=== PATIENT | male | born 1985 | race Caucasian/White ===

== ENCOUNTER 2016-12-14 21:47 | Emergency (ER) | payer OTHER ==
[~2016-12-14] VITALS: Ht 172.7 cm; Wt 103.9 kg
[2016-12-14 21:47] VITALS: Ht 172.7 cm; Wt 103.9 kg
[~2016-12-14 21:47] MED LIST: CARV12.52 PO; FURO-153 PO; LAMO150T42 PO; LISI10TA7 PO; MIRT30TA6 PO; ORPH100T2 PO; PRAV40TA3 PO; PROP10TA10 PO; SERT-88 PO; TRAM50TA53 PO; TRAZ-170 PO
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
--- NOTE | 2016-12-14 21:57 | NUR ---
REPORT RECEIVED AND CARE ASSUMED AT THIS TIME.
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
--- NOTE | 2016-12-14 22:02 | NUR ---
RUPESH PLATT INTO SEE PT AT THIS TIME.
--- NOTE | 2016-12-14 22:25 | NUR ---
XRY AT BEDSIDE.
--- NOTE | 2016-12-14 23:20 | NUR ---
RUPESH PLATT INTO TALK WITH PT AND SPOUSE.
[2016-12-14] MEDS ORDERED: KETOROLAC 60mg/2ml INJECTION IM ONE (23:30)
[2016-12-15 00:03] VITALS: BP 137/72; PULSE 95; RESP 16; TEMP 99.5; O2SAT 98
--- NOTE | 2016-12-15 00:03 | NUR ---
DISMISSAL INSTRUCTIONS AND WORK NOTE GIVEN/REVIEWED WITH PT. VERBALIZES UNDERSTANDNING. PT LEAVES DEPT AMBULTORY UPON DISMISSAL.
--- NOTE | 2016-12-15 08:01 | DI ---
Indication: ITS.REASON: pain over medial and lateral ankle PROCEDURE: ANKLE LEFT 3 VIEW: Encounter: Initial Comparison: None Findings: There is no acute fracture, dislocation or malalignment identified. Chronic appearing mild deformity of the distal tibia, presumably due to old trauma. Impression: No acute osseous abnormality. .
== END 2016-12-15 00:03 | disposition home or self-care (01) ==
LOC: ED 21:47
DX: S93.402A Sprain of unspecified ligament of left ankle, initial encounter (principal); X50.1XXA Overexertion from prolonged static or awkward postures, initial encounter; Y93.9 Activity, unspecified; Y92.9 Unspecified place or not applicable; Y99.8 Other external cause status
CPT/HCPCS: 73610; 96372; 99283; J1885